=== PATIENT | female | born 1930 | race Caucasian/White ===

== ENCOUNTER → 2017-07-14 | Outpatient (CLI) | payer MEDICARE, BC ==
[~2017-07-14] MED LIST: ACETAMINOPHEN325 M1 PO; ASPIR 8181 M1 PO; AZELASTINE137 MCG/0. NS; CALTRATE-600 W1 EACH PO; CELEXA20 MG PO; COLACE100 MG PO; COSOPT OCUMETER10 M1 OP; CRANBERRY400 MG PO; CRESTOR; CRESTOR10 MG PO; ECOTRIN325 MG PO; FISH OIL 1,001000 M2 PO; HYDROCODON-ACE1 EAC7 PO; HYDROCODONE-AP1 EAC6 PO; MAGNESIUM OXID400 MG PO; MIACALCIN; MOBIC15 MG PO; MUCAPHED TABLE1 EACH PO; MULTI VITAMIN1 EACH PO; NASONEX17 GM INH; NIASPAN 500 MG500 M1 PO; NIASPAN PO; PROLIA60 MG/1 ML SUBQ; RECLAST 55 MG/100 M IV; ROBAXIN 750 MG750 MG PO; VITAMIN C + RO500 MG PO; VITAMIN D32000 UNIT PO; VITAMIN D400 UNI1 PO; ZANAFLEX4 MG PO
== END ==
LOC: M.MRI 15:46
DX: M54.16 Radiculopathy, lumbar region (principal)

== ENCOUNTER → 2017-07-22 | Outpatient (CLI) | payer MEDICARE, BC ==
--- NOTE | 2017-07-27 06:53 | PAINCON ---
[facility] [address] [place] [address] PAIN MANAGEMENT CONSULTATION Name: MARSHALL MCCLAIN [facility] [id number] Admission: 07/22/17 Attend Phys: Enoch Michaels Discharge: Date of : 32 Report #: [id number] THIS REPORT FOR: //name// CC: Myo Espinal DATE OF SERVICE: 07/22/2017 PAIN CLINIC NOTE HISTORY OF PRESENT ILLNESS: The patient is a pleasant 87-year-old female, prior seen in the pain clinic back in February 2016. Treated for lumbar radiculopathy at that time, somewhat lost to follow up. She returns to pain clinic today. The patient notes that prior epidural injections had afforded good relief of lumbar radicular pain. She notes pain has gradually begun to recur. Rates her pain as 5-6 on a VAS. She notes that developing some weakness and pain in the right leg. She did fall about a month ago, though states that this is unrelated to the pain and her pain started prior to this. Her pain actually started earlier this year. She started taking a nonsteroidal anti-inflammatory agent, developed some melanotic stools, actually admitted to the hospital with anemia. The GI bleed has resolved, though she still has ongoing pain, low back and leg. She does use some topical Voltaren gel, Tylenol for pain and Lyrica 25 mg b.i.d. PHYSICAL EXAMINATION: Notes a pleasant 87-year-old female, BMI is 22.2 kilograms per meter squared, blood pressure 153/73, pulse 89, respirations are 18. She is alert and oriented to person, place, and time, judged to be a reasonable historian. Rises from the chair using armrest, has a modestly antalgic gait. Tender across the low back, right greater than left SI mediated pain. Lower extremity strength again is symmetric, but diminished about 3/5. Straight leg raise is negative on the left, positive on the right. Patellar reflex is diminished on the right compared to the left. Achilles reflexes are generally symmetric. The patient does have a new MRI from 07/14/2017. It reveals the prior hemilaminectomy at L3-L4 and L4-L5; however, does show a broad-based right paracentral disk protrusion and a small disk extrusion causing right lateral recess narrowing. ASSESSMENT: Symptomatic lumbar radiculopathy, status post decompressive laminectomy with ongoing recurrent lumbar radicular pain. RECOMMENDATIONS: 1. Right transforaminal epidural injection at L4-L5 today. 2. Follow up in 3 weeks for reevaluation. Consideration for repeat epidural injection right of midline L5-S1 versus right SI joint injection for a component of SI [place] [address] PAIN MANAGEMENT CONSULTATION Name: MARSHALL MCCLAIN [facility] [id number] Admission: 07/22/17 Attend Phys: Enoch Michaels Discharge: Date of : 32 Report #: [id number] 3. We will have the patient is eschew a nonsteroidal anti-inflammatory agents due to the prior GI bleed concerns. Thank you for allowing me to participate in this patient's care. I will keep you abreast of her progress. PROCEDURE NOTE: Right L4-L5 transforaminal epidural injection under fluoroscopy. PROCEDURE NOTE: After both written and informed consent was obtained including risk of spinal cord damage, infection, increased pain and paralysis, the patient agreed to proceed. The patient was taken to the fluoroscopy suite, placed in a prone position with appropriate abdominal bolstering. After sterile prep with ChloraPrep and sterile drape, a skin wheal with 1% Xylocaine was raised. A 22 gauge 4-1/2 inch epidural Tuohy needle was inserted. From an oblique approach into the posterior-superior aspect of the right L4-L5 neural foramen with continuous pressure on the glass syringe plunger for loss of resistance. Glass syringe was filled with 2 cc of 0.1 Xylocaine. The glass loss of resistance syringe was removed. A low volume extension tubing was connected, negative aspiration was accomplished for cerebrospinal fluid or blood. 1 mL of Omnipaque was injected which showed spread both within the epidural space and laterally along the nerve root. This was followed with 80 mg of triamcinolone plus 1 mL of 1.5% preservative-free Xylocaine. Needle was partially withdrawn, 0.5 mL of Xylocaine was injected to clear the needle and the needle was removed. The area was cleansed, band-aid was applied. The patient was allowed to ambulate to the recovery room, discharged in good and stable condition. <ELECTRONICALLY SIGNED> By: Roderick Espinal DO 07/27/17 0653 [id number] Espinal DO /nt
== END | disposition home or self-care (01) ==
LOC: M.PC 06-10 09:00
DX: M54.16 Radiculopathy, lumbar region (principal); G89.29 Other chronic pain; Z98.890 Other specified postprocedural states; Z87.19 Personal history of other diseases of the digestive system; Z88.0 Allergy status to penicillin; Z88.8 Allergy status to other drugs, medicaments and biological substances; Z79.82 Long term (current) use of aspirin; Z79.891 Long term (current) use of opiate analgesic

== ENCOUNTER → 2017-08-05 | Outpatient (CLI) | payer MEDICARE, BC ==
--- NOTE | 2017-08-06 07:50 | PAINCON ---
[facility] [address] [place] [address] PAIN MANAGEMENT CONSULTATION Name: MARSHALL MCCLAIN [id number] Admission: 08/05/17 Attend Phys: Enoch Michaels Discharge: Date of : 32 Report #: [id number] THIS REPORT FOR: //name// CC: Nithin Espinal The patient is a pleasant 87-year-old female, prior seen in the pain clinic for symptomatic lumbar radiculopathy. She was given a right L4-L5 transforaminal epidural injection on 07/22/2017 with dramatic improvement of baseline pain. She notes she still has overall 50% improvement, but has pain in the right leg, exacerbated with standing and walking. PHYSICAL EXAMINATION: Shows positive straight leg raise on the right with slight decreased right hip flexion strength. An 87-year-old female, BMI is 22.2 kilograms per meter squared. Vital signs are stable as noted in the EMR. ASSESSMENT: Symptomatic lumbar radiculopathy, status post decompressive laminectomy. RECOMMENDATIONS: 1. Continue current medications unchanged including Voltaren gel topically, Tylenol during the day and Lyrica 25 mg b.i.d. 2. Right L4-L5 transforaminal epidural injection today. 3. Follow up in 3 weeks for reevaluation. Consideration for repeat injection if indicated clinically. Otherwise, follow up simply as needed. PROCEDURE: Transforaminal epidural injection under fluoroscopy. PROCEDURE NOTE: After both written and informed consent was obtained including risk of spinal cord damage, infection, increased pain and paralysis, the patient agreed to proceed. The patient was taken to the fluoroscopy suite, placed in a prone position with appropriate abdominal bolstering. After sterile prep with ChloraPrep and sterile drape, a skin wheal with 1% Xylocaine was raised. A 22 gauge 4-1/2 inch epidural Tuohy needle was inserted. From an oblique approach into the posterior-superior aspect of the right L4-L5 neural foramen with continuous pressure on the glass syringe plunger for loss of resistance. Glass syringe was filled with 2 cc of 0.1 Xylocaine. The glass loss of resistance syringe was removed. A low volume extension tubing was connected, negative aspiration was accomplished for cerebrospinal fluid or blood. 1 mL of Omnipaque was injected which showed spread both within the epidural space and laterally along the nerve root. This was followed with 80 mg of triamcinolone plus 1 mL of 1.5% preservative-free Xylocaine. Needle was partially withdrawn, 0.5 mL of Xylocaine was injected to clear the needle and [place] [address] PAIN MANAGEMENT CONSULTATION Name: MARSHALL MCCLAIN Room: [facility] Perez#: [id number] Admission: 08/05/17 Attend Phys: Enoch Michaels Discharge: Date of : 32 Report #: [id number] was cleansed, band-aid was applied. The patient was allowed to ambulate to the recovery room, discharged in good and stable condition. <ELECTRONICALLY SIGNED> By: Roderick Espinal DO 08/06/17 0750 [id number] Espinal DO /nt
== END | disposition home or self-care (01) ==
LOC: M.PC 03:59
DX: M54.16 Radiculopathy, lumbar region (principal); G89.29 Other chronic pain; Z98.890 Other specified postprocedural states; Z88.0 Allergy status to penicillin; Z88.8 Allergy status to other drugs, medicaments and biological substances; Z79.82 Long term (current) use of aspirin; Z79.899 Other long term (current) drug therapy; Z79.891 Long term (current) use of opiate analgesic

== ENCOUNTER → 2017-08-26 | Outpatient (CLI) | payer MEDICARE, BC ==
--- NOTE | 2017-08-27 06:59 | PAINCON ---
[address] [address] PAIN MANAGEMENT CONSULTATION Name: MARSHALL MCCLAIN Room: [facility]#: [id number] Admission: 08/26/17 Attend Phys: Enoch Michaels Discharge: Date of : 32 Report #: [id number] THIS REPORT FOR: //name// CC: Nithin Espinal The patient is a very pleasant 87-year-old female, being treated for lumbar radiculopathy secondary to spinal stenosis. She has done well with occasional right L4-L5 transforaminal epidural injections. Last injection afforded greater than 60% relief, pain has begun to recur. She does have a small nodule in the right lateral distal lower extremity. It appears to be subcutaneous lipoma. She has a negative Homans. She also has decreased right dorsiflexion and lower extremity extension strength compared to the left. Positive straight leg raise about 30 degrees on the right. Otherwise, the patient notes subjective pain score is a 6-7 on a VAS. PHYSICAL EXAMINATION: Shows a pleasant 87-year-old female, BMI is 20.8 kg/m2. Blood pressure 147/64, pulse 73, respirations are 18, room air oxygen saturation 98%. Rises from chair using armrest, modestly antalgic gait, diffuse tenderness across the low back. No discrete trigger points are noted. The patient takes Tylenol for pain. She has been using Voltaren gel topically for the right lower extremity nodule, though it did not afford much relief. Suggest she follow up with her primary care physician if the nodule continues for consideration for an ultrasound. Presently, it appears fairly benign. We reviewed her MRI from 07/14/2017. Notes hemilaminectomies at L3-L4 and L4-L5, broad-based disk bulge, right paracentric at right L4-L5, causing some neural foraminal narrowing at this level. ASSESSMENT: Symptomatic lumbar radiculopathy, status post decompressive laminectomy procedure, right L4-L5 transforaminal epidural injection under fluoroscopy today. This will be #3 in series, first injection was 07/22/2017, second was 08/05/2017. The patient understands she will need to wait until sometime after mid January before we can consider repeating these injections. PROCEDURE: Transforaminal lumbar epidural injection under fluoroscopy. PROCEDURE NOTE: After both written and informed consent was obtained including risk of spinal cord damage, infection, increased pain and paralysis, the patient agreed to proceed. The patient was taken to the fluoroscopy suite, placed in a prone position with appropriate abdominal bolstering. After sterile prep with ChloraPrep and sterile drape, a skin wheal with 1% Xylocaine was raised. A 22 gauge 4-1/2 inch epidural Tuohy needle was inserted. From an oblique approach into the posterior-superior aspect of the right L4-L5 neural foramen with continuous pressure on the glass syringe plunger [place] [address] PAIN MANAGEMENT CONSULTATION Name: MARSHALL MCCLAIN Room: [facility] Perez#: [id number] Admission: 08/26/17 Attend Phys: Enoch Michaels Discharge: Date of : 32 Report #: [id number] syringe was filled with 2 cc of 0.1 Xylocaine. The glass loss of resistance syringe was removed. A low volume extension tubing was connected, negative aspiration was accomplished for cerebrospinal fluid or blood. 1 mL of Omnipaque was injected which showed spread both within the epidural space and laterally along the nerve root. This was followed with 80 mg of triamcinolone plus 1 mL of 1.5% preservative-free Xylocaine. Needle was partially withdrawn, 0.5 mL of Xylocaine was injected to clear the needle and the needle was removed. The area was cleansed, band-aid was applied. The patient was allowed to ambulate to the recovery room, discharged in good and stable condition. <ELECTRONICALLY SIGNED> By: Roderick Espinal DO 08/27/17 0659 [id number] [id number] Espinal DO /penny
== END | disposition home or self-care (01) ==
LOC: M.PC 00:37
DX: M54.16 Radiculopathy, lumbar region (principal); G89.29 Other chronic pain; Z98.890 Other specified postprocedural states

== ENCOUNTER → 2017-11-12 | Outpatient (CLI) | payer MEDICARE, BC ==
--- NOTE | 2017-11-20 17:38 | PAINCON ---
[address] [address] PAIN MANAGEMENT CONSULTATION Name: MARSHALL MCCLAIN [facility] [id number] Admission: 11/12/17 Attend Phys: Caden Colon MD Discharge: Date of : 32 Report #: [id number] THIS REPORT FOR: //name// CC: Caden Blas DATE OF SERVICE: 11/12/2017 FOLLOWUP COMPLAINT: Lumbar pain in the right leg for years. HISTORY OF PRESENT ILLNESS: The patient is an 87-year-old female who has been seen in the pain clinic and followed by Dr. Roderick Espinal. He has seen her for a number of years. She has problems with her low back. She suffers from lumbar radicular pain secondary to spinal stenosis. She has done well in the past with transforaminal epidural steroid injections on the right. She gleaned greater than 60% improvement after the last injection. She does have what appears to be a small subcutaneous lipoma on her right lateral distal extremity. She returns today for renewal of her medications. She is in a wheelchair. Uses a walker as well as a cane. Has pain that is most problematic down her left and her right leg. It involves her right knee to her distal foot. She only has pain when she is ambulating. Injections into this area helps about 80%-90%. Rates her pain as a 0/10 when she is sitting and 10/10 when she is standing. The patient has had 3 injections in a six-month period of time. At this juncture, she would like to inquire about options. ALLERGIES: CIPROFLOXACIN AND PENICILLIN. MEDICATIONS: Tylenol 325 mg, ascorbic acid, vitamin C with sola hips 500 mg, aspirin 81 mg, azelastine 137 mcg spray to each nostril b.i.d., calcium carbonate, vitamin D3 2000 units, Celexa 20 mg, cranberry 400 mg, fish oil 1000 mg, Mucaphed tablets 600 mg b.i.d., magnesium 400 mg, Meloxicam 15 mg, and multivitamin. PAST MEDICAL HISTORY: Joint disease/arthritis and hypercholesterolemia. PAST SURGICAL HISTORY: Cataract removal. 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 REVIEW OF SYSTEMS: Decreased appetite, fatigue, cataracts, glaucoma, ringing in the ears, loss of appetite, frequent urination, joint pain, cramps, and back pain. LABORATORY DATA: MRI of the lumbar spine dated 07/14/2017 reveals: 1. L1-L2 persistent disk space narrowing with Modic type 2 and type 3 changes involving the endplates. There is posterior disk bulging [place] [address] PAIN MANAGEMENT CONSULTATION Name: MARSHALL MCCLAIN Room: [facility]#: [id number] Admission: 11/12/17 Attend Phys: Caden Colon MD Discharge: Date of : 32 Report #: [id number] ventral thecal sac and narrowing of the central canal to 9 mm. There is moderate bilateral neural foraminal narrowing. 2. L2-L3, mild circumferential disk bulging. This is great along the right foraminal surface. There is [id number] bilateral symmetric neural foraminal narrowing. There is bilateral facet hypertrophy with ligamentum flavum thickening. 3. L3-L4 remote hemilaminectomy on the left. There is disk space narrowing and disk desiccation. There is persistent or recurrent mass effect on the left neural foramen. After administration of contrast, there is a heterogeneous contrast and has enhancement in this region. The appearance is most concerning for residual or recurrent left foraminal disk protrusion. There is a left-sided neural foraminal stenosis with effacement of the exiting L3 nerve root. Mild right foraminal disk bulging is present with unchanged mild right-sided neural foraminal stenosis. 4. L4-L5 disk desiccation. There is disk space narrowing present. There is a left-sided laminectomy. The central canal was narrowed to approximately 6.5 mm. There is a central to right paracentral eccentric disk protrusion. After administration of contrast dyes there is peripheral contrast enhancement. This comes in close contact with the right L5 nerve root. The AP diameter of the central canal is narrowed to 6.5 mm. There is marked right-sided ligamentum flavum thickening measuring 11 mm. There is a trace amount of fluid in both facet joints, left greater than right. 5. L5-S1, chronic disk space narrowing with disk desiccation. There is posterior disk bulging and mild effacement of the ventral thecal sac, but no central canal or significant neural foraminal stenosis. The appearance is similar to the prior study. PAIN CLINIC ASSESSMENT: 1. History of osteoarthritis. The patient has arthritic changes in the lower portion of her back as evidenced by her last MRI in 07/2007. 2. Height 5 feet 3 inches, weight 135 pounds, BMI is 20. 3. Vital signs: Blood pressure 140/93, heart rate 78, respiratory rate 16, room air saturation 100%, and temperature 97.8. 4. Pain intensity 0/10 while sitting and 10/10 while standing. 5. Fall risk. The patient has not fallen in the last 3 months. 6. Blood thinner. The patient is not on a blood thinning medication. 8. Hypertension. The patient is not being treated for hypertension. 9. Opioid therapy greater than 6 weeks. The patient is provided with hydrocodone to help curtail her pain. 10. Functional assessment tool. 11. Recreational drug use. The patient denies use of recreational drugs. 12. Tobacco: The patient denies use of tobacco. 13. Alcohol: The patient denies frequent use of alcoholic beverages. PHYSICAL EXAMINATION: GENERAL: The patient is a well-developed, well-nour[place] [address] PAIN MANAGEMENT CONSULTATION Name: MARSHALL MCCLAIN Room: [facility]#: [id number] Admission: 11/12/17 Attend Phys: Caden Colon MD Discharge: Date of : 32 Report #: [id number] her stated age. She is in a wheelchair. Her affect is somewhat flat. She is alert and oriented x 3. Her is present. HEENT: Normocephalic, atraumatic. Extraocular eye muscles intact. Sclerae nonicteric. Mucous membranes are moist. NECK: Without significant JVD or adenopathy. HEART: Regular rate. ABDOMEN: Nontender. MUSCULOSKELETAL: The patient has pain and discomfort with pain radiating down her right leg. She has numbness and pain below the right knee area in the L5-S1 area near the posterior portion of her calf. Notes that the pain is worse when she stands on it. Has no pain or discomfort when she is sitting. IMPRESSION: 1. Lumbar radiculopathy, which has improved with transforaminal epidural steroid injections, but continues to be problematic. 2. Hypercholesterolemia. RECOMMENDATIONS: We discussed treatment options with the patient and her . Risks and benefits of an epidural steroid injection were discussed. The patient has recently had 3 epidural steroid injections and at this point would probably not qualify for another. We explained and reviewed her MRI with her. She could possibly follow up with a neurosurgeon. The patient states that she has seen Dr. Richards in the past. At this juncture, she declines a followup with him. We have discussed the treatment options, which include injections. She has had the number of injections that she can at this juncture. Use of pain medications, we will slowly provide pain medications. Hopefully, did improve her pain comfort without causing problems. The other option and last final option would be that of surgery. We have asked that if she feels she might want surgery, consider chatting with a neurosurgeon, if need arises to have surgery. She and her will give some consideration. A script for hydrocodone 5/325 one p.o. q 6-8 hours has been written. Possibility of Neurontin and gabapentin were discussed. I think the patient had taken that in the past and noticed a significant swelling in her lower extremities. It was helpful, but she is unable to take at this juncture. We would like to thank you for letting us participate in her care. We hope she continues to improve. <ELECTRONICALLY SIGNED> By: Caden Colon MD 11/20/17 1738 [id number]. Alf Colon MD /penny
== END ==
LOC: M.PC 04:55
DX: M54.16 Radiculopathy, lumbar region (principal); E78.00 Pure hypercholesterolemia, unspecified

== ENCOUNTER → 2017-12-10 | Outpatient (CLI) | payer MEDICARE, BC ==
--- NOTE | 2017-12-28 10:00 | PAINCON ---
[facility] [address] [place] [address] PAIN MANAGEMENT CONSULTATION Name: MARSHALL MCCLAIN [facility] [id number] Admission: 12/10/17 Attend Phys: Caden Colon MD Discharge: Date of : 32 Report #: [id number] THIS REPORT FOR: //name// CC: Caden Blas DATE OF SERVICE: 12/10/2017 FOLLOW-UP COMPLAINT: "Here for medication renewal and information about spinal cord stimulator." FOLLOW-UP HISTORY: The patient is an 87-year-old female who has been followed in the Pain Clinic. She has been followed for a number of years. She continues to have pain and discomfort in her low back area. She finds that opioid medications are helpful. She states that she does not want to get hooked on opioid medications. She takes hydrocodone 5 mg b.i.d. She has the option of taking it t.i.d. The thought of getting hooked on this medication has been one of the prevailing reasons why she takes less than 3 tablets daily. She has undergone transforaminal epidural steroid injections. She gleans greater than 60% improvement after the last injection that she had. She is in a wheelchair. She uses a walker and cane. She notes that her pain is most problematic when she is standing for a prolonged period of time. When she is sitting, she is not having as much discomfort. She has had some pain that radiated down into her foot. This is only problematic when she is ambulating. She rates her pain as zero when sitting and 10/10 when she is standing. The patient had talked with Dr. Roderick Espinal about the possibility of a spinal cord stimulator. The patient would like to inquire again in regards to the recommendations and likelihood of improvement using a spinal cord stimulator in her situation. ALLERGIES: CIPROFLOXACIN, PENICILLIN. MEDICATIONS: Tylenol 325 mg, ascorbic acid, vitamin C with sola hips 500 mg, aspirin 81 mg, azelastine 137 mcg spray to each nostril b.i.d., calcium carbonate, vitamin D3 2000 units, Celexa 20 mg, cranberry 400 mg, fish oil 1000 mg, MucaphEd tablet 600 mg b.i.d., magnesium 400 mg, meloxicam 15 mg, multivitamins. PAIN CLINIC ASSESSMENT/PQRS: 1. History of osteoarthritis: The patient has arthritic changes in her lower back. This is evidenced by findings on her MRI in 2007. 2. Rheumatoid arthritis: The patient states she is not being treated by a city carrier. 3. Height 5 feet 3 inches, weight 140 pounds, BMI 24.9. 4. Vital signs: Blood pressure 142/72, heart rate 77, respiratory rate 16, [facility] [address] [place] [address] PAIN MANAGEMENT CONSULTATION Name: MARSHALL MCCLAIN Room: [facility]#: [id number] Admission: 12/10/17 Attend Phys: Caden Colon MD Discharge: Date of : 32 Report #: [id number] room air saturation 96%, temperature 98.1. 5. Pain intensity: 4-5/10. 6. Fall history: The patient has not fallen in the last 3 months. 7. Blood thinner: The patient is not on a blood thinning medication. 8. Hypertension: The patient is not being treated for hypertension. 9. Opioid therapy greater than 6 weeks: The patient receives her medications from one source, the Pain Clinic. 10. Functional assessment tool. 11. Recreational drug use: The patient denies use of recreational drugs. 12. Tobacco: The patient denies use of tobacco. 13. Alcohol: The patient denies use of alcoholic beverages. PHYSICAL EXAMINATION: GENERAL: The patient is a well-developed, well-nourished white female. She appears her stated age. She is alert and oriented. She is in a wheelchair. Affect is appropriate. She is accompanied by her daughter and another male family member. HEENT: Normocephalic, atraumatic. Extraocular eye muscles intact. Sclerae nonicteric. Mucous membranes are moist. NECK: Without significant JVD or adenopathy. HEART: Regular rate. ABDOMEN: Nontender. Bowel sounds present. MUSCULOSKELETAL: The patient has pain that radiates down into her right leg. She has some numbness and pain below her right knee, in the L5-S1 distribution down into posterior portion of her calf. The patient notes worsening of her pain and onset when she stands. She notes a quiescent and decreasing pain while sitting. IMPRESSION: 1. Lumbar radiculopathy that improves with transforaminal epidural steroid injections but continues to be problematic. 2. Hypercholesterolemia. RECOMMENDATIONS: We have discussed the patient's condition with her and her . This was in the past. The patient has epidural steroid injections. She states that she would consider seeing another physician. She has seen Dr. Mansoor Richards in the past. She is not sure that she would like to have another surgery performed by Dr. Richards. She will follow up at the [facility] or [facility]. She will speak with Dr. Espinal. Information regarding the spinal cord stimulator will be provided. The patient has been given a script for hydrocodone renewal. She will continue with hydrocodone 5/325s [address] [place] [address] PAIN MANAGEMENT CONSULTATION Name: MARSHALL MCCLAIN Room: [facility].#: [id number] Admission: 12/10/17 Attend Phys: Caden oClon MD Discharge: Date of : 32 Report #: [id number] We would like to thank you for letting us participate in her care. We hope she continues to improve. <ELECTRONICALLY SIGNED> By: Caden Colon MD 12/28/17 [id number] Colon MD /nt
== END ==
LOC: M.PC 04:55
DX: M54.16 Radiculopathy, lumbar region (principal); E78.00 Pure hypercholesterolemia, unspecified

== ENCOUNTER → 2018-02-25 | Outpatient (CLI) | payer MEDICARE, BC ==
[~2018-02-25] MED LIST changes: +B12INJ PO; +GLUCOSAMINE HC500 MG PO; +IRON325 PO; +LYRICA PO; +PEPCID20 MG PO; +XALATAN2.5 ML OPHTHALMIC; +ZYRTEC10 M5 PO
--- NOTE | ~2018-02-25 | PAINCON ---
[address] [address] PAIN MANAGEMENT CONSULTATION Name: MARSHALL MCCLAIN [facility] [id number] Admission: 02/25/18 Attend Phys: Caden Colon MD Discharge: Date of : 32 Report #: [id number] THIS REPORT FOR: //name// CC: Caden Blas DATE OF SERVICE: 02/25/2018 CHIEF COMPLAINT: Low back pain. HISTORY: The patient is an 87-year-old female who has been seen in the pain clinic because of chronic back pain. She has been followed in the pain clinic for a number of years. She continues to have pain in low back area. She finds that opioid medications continue to be helpful. She has noticed some increased pain with some pain radiating down into her back into her legs, left greater than right. She has returned to the pain clinic with the intention of undergoing an epidural steroid injection. She would like to have her medications renewed. She has thought about it at this time does not feel that surgery is the option that she would like to consider. She has not had a spinal cord stimulator trial. She has undergone transforaminal epidural steroid injections in the past. Gleaned greater than 60% improvement after the injection. She walks with a walker and a cane. Finds that the pain is most problematic with prolonged standing. She notes pain improves when she rests. She states her pain is very minimal with sitting, rises to a 10/10 when she is standing. The patient may consider a spinal cord stimulator in the future. She has had a conversation with Dr. Roderick Espinal in that regard. ALLERGIES: CIPROFLOXACIN, PENICILLIN. MEDICATIONS: Tylenol 325, ascorbic acid, sola hips 500 mg, aspirin 81 mg, azelastine 137 mcg spray to each nostril b.i.d., calcium carbonate, vitamin D3 2000 units, Celexa 200 mg, cranberry 400 mg, fish oil 1000 mg, Mucaphed tabs 600 mg b.i.d., magnesium, Meloxicam 15 mg, multivitamins, hydrocodone 1 p.o. b.i.d. 5 mg, tizanidine 4 mg 1 p.o. t.i.d. PAIN CLINIC ASSESSMENT: 1. History of osteoarthritis. The patient has some arthritic changes in her lower back evidenced by findings on MRI in 2007. The patient states she has not been treated for rheumatoid arthritis. 2. Height 5 feet 3 inches, weight 140 pounds, BMI is 24. 3. Vital Signs: Blood pressure 154/71, heart rate 93, respiratory rate 16, room air saturation 96%, temperature 97.9. 4. Pain intensity 6/10. 5. Fall history: The patient has not fallen in the last 3 months. 6. Blood thinner. The patient is not on a blood thinning medication. 7. Hypertension. The patient has not [place] [address] PAIN MANAGEMENT CONSULTATION Name: MARSHALL MCCLAIN Room: [facility]#: [id number] Admission: 02/25/18 Attend Phys: Caden Colon MD Discharge: Date of : 32 Report #: [id number] 8. Opioids greater than 6 weeks. The patient receives her medications from one source, the Pain Clinic. 9. Functional assessment tool, low for opioid use. 10. Recreational drug use. The patient denies use of recreational drugs. 11. Tobacco: The patient denies use of tobacco. 12. Alcohol: The patient denies use of alcoholic beverages. PHYSICAL EXAMINATION: GENERAL: The patient is a well-developed, well-nourished white female. She appears her stated age. She is alert and oriented x 3. She has in a wheelchair. Affect is appropriate, has been accompanied by her daughter and another family member. HEENT: Normocephalic, atraumatic. Extraocular eye muscles intact. Sclerae nonicteric. Mucous membranes are moist. NECK: Without adenopathy or JVD. HEART: Regular rate. ABDOMEN: Nontender. Bowel sounds present. MUSCULOSKELETAL: The patient has pain that radiates down the lower portion of her back involving the right leg. She has some numbness below the right knee. She has pain in the L5-S1 distribution involving her calf. IMPRESSION: 1. Lumbar radiculopathy, improved with epidural steroid injection in the past. 2. Hypercholesterolemia. RECOMMENDATIONS: We discussed treatment options with the patient. Risks and benefits of an epidural steroid injection were explained. Possible complications of the procedure were reviewed. They include but are not limited to infection, increased muscle soreness, headache, worsening of pain, paralysis, the patient elects to proceed. PROCEDURE NOTE: The patient was taken to the procedure area. She was assisted in getting on the examination table. A pillow was placed under her abdomen to bolster improve positioning. Fluoroscopy using anterior and posterior visualization were implemented. L4-L5 area was infiltrated with 0.25% bupivacaine. A 17-gauge Tuohy with loss of resistance technique using a left midline approach was undertaken. After appropriate placement, a total of 80 mg Depo-Medrol, 40 mg triamcinolone and 2 mL of 0.25% bupivacaine was performed. The patient tolerated the procedure well. She was taken to the recovery room. Approximately 20 seconds fluoroscopy time was used. [facility] [address] [place] [address] PAIN MANAGEMENT CONSULTATION Name: MARSHALL MCCLAIN Room: [facility]#: [id number] Admission: 02/25/18 Attend Phys: Caden Colon MD Discharge: Date of : 32 Report #: [id number] We would like to thank you for letting us participate in the patient's care. We hope she continues to improve. By: [id number]. Alf Colon MD /nt
== END | disposition home or self-care (01) ==
LOC: M.PC 05:29
DX: M54.16 Radiculopathy, lumbar region (principal); I10 Essential (primary) hypertension; E78.00 Pure hypercholesterolemia, unspecified; Z98.890 Other specified postprocedural states; Z88.8 Allergy status to other drugs, medicaments and biological substances; Z88.0 Allergy status to penicillin; Z79.899 Other long term (current) drug therapy; Z79.82 Long term (current) use of aspirin; Z79.891 Long term (current) use of opiate analgesic

== ENCOUNTER → 2018-03-30 | Outpatient (CLI) | payer MEDICARE, BC ==
[~2018-03-30] MED LIST changes: +LASIX 20 MG TAB20 MG PO; +PROTONIX40 M1 PO
--- NOTE | ~2018-03-30 | PAINCON ---
[address] [address] PAIN MANAGEMENT CONSULTATION Name: MARSHALL MCCLAIN Room: [facility] Ana#: [id number] Admission: 03/30/18 Attend Phys: Caden Colon MD Discharge: Date of : 32 Report #: [id number] THIS REPORT FOR: //name// CC: Caden Blas DATE OF SERVICE: 03/30/2018 CHIEF COMPLAINT: Here for medication renewal. HISTORY: The patient is an 87-year-old female who has been seen in the pain clinic because of chronic pain. She has been followed because of this pain for a number of years. Continues to have pain in her low back. Finds that use of opioids continued to be helpful. She has pain that radiates down into her legs. The left side is more problematic than the right in the past. She has undergone epidural steroid injections. She has gleaned greater than 60% improvement after transforaminal epidural steroid injections. Continues to walk with a walker and cane. She also has pain in her right and left shoulders. This problem has been going on for years. She is undergoing therapy. She has done this at [place]. She had some problem with bleeding. She states that her bile was cauterized. She did have some weakness. She is having some limited range of motion in her arms. She was hoping for a cervical epidural steroid injection. She has noted some increased swelling in her legs. She has been started on Lasix to decrease some of the swelling. Because of the amount of blood loss that she sustained because of bleeding, she underwent transfusion of 3 units of blood. She has returned today for evaluation and treatment. ALLERGIES: CIPROFLOXACIN AND PENICILLIN. MEDICATIONS: Tramadol 325 mg, ascorbic acid, sola hips 500 mg, aspirin 81 mg, azelastine 137 mcg spray 2 spray to each nostril b.i.d., calcium carbonate, vitamin D3 2000 units, Celexa 200 mg, cranberry 400 mg, fish oil 1000 mg, Mucaphed tabs 600 mg b.i.d., magnesium, meloxicam, multivitamins, hydrocodone 1 p.o. b.i.d., tizanidine 4 mg 1 p.o. t.i.d. PAIN CLINIC ASSESSMENT: 1. History of osteoarthritis. The patient has some arthritic changes in the low back area. She has these findings evidence on her MRI since 2007. She has not been treated for rheumatoid arthritis. 2. Height 5 feet 3 inches, weight 145 pounds, BMI is 25. 3. Vital signs: Blood pressure 140/78, heart rate 91, respiratory rate 16, room air saturation 94%, and temperature 97.8. 4. Pain intensity 8/10 in her arms. 5. Fall history: The patient has not fallen in the last [address] [place] [address] PAIN MANAGEMENT CONSULTATION Name: MARSHALL MCCLAIN Room: [facility]#: [id number] Admission: 03/30/18 Attend Phys: Caden Colon MD Discharge: Date of : 32 Report #: [id number] 6. Blood thinner. The patient is not on a blood thinning medication. 7. Hypertension. The patient is not being treated for hypertension. 8. Opioid greater than 6 weeks. The patient received medication through the Pain Clinic. 9. Functional assessment tool, low for opioid use. 10. Recreational drug use. The patient denies use of recreational drugs. 11. Tobacco: The patient denies use of tobacco. 12. Alcohol: The patient denies use of alcoholic beverages. PHYSICAL EXAMINATION: GENERAL: The patient is a well-developed, well-nourished white female. Appears her stated age. She is alert and oriented x 3. She is in a wheelchair. HEENT: Normocephalic, atraumatic. Extraocular eye muscles intact. The patient complains of pain and discomfort in the right as well as the left arm. She note some weakness and discomfort in these areas down into her arms. HEART: History of murmur. NECK: Without adenopathy or JVD. ABDOMEN: Nontender. Bowel sounds present. MUSCULOSKELETAL: The patient has pain that radiates down into her arms, right greater than left. The patient also has pain and discomfort in the lumbar area with pain radiating down into the L5-S1 area of her legs on the right with numbness. ASSESSMENT: 1. Recent gastrointestinal bleed. 2. Cervical radiculopathy. 3. Lumbar radiculopathy. 4. Hypercholesterolemia. RECOMMENDATIONS: We discussed treatment options with the patient. Given that the patient has had a recent GI bleed we explained to her that use of cortisone can sometimes cause some exacerbation of this. We would recommend at least for the next 6 weeks while she heals that she not undergo an injection. Recommend the patient to stop all nonsteroidal anti-inflammatory medications including the Mobic, given that she has had a recent bleed. She will continue with her current medication of hydrocodone 5/325 one p.o. b.i.d. The patient will return in the future after she has been cleared that her GI status has stabilized. At that time, we may consider epidural steroid injection in the cervical area or the lumbar area. We would like to thank you for letting us participate in her care. We hope she continues to improve. By: [id number]. Alf Colon MD /nt
== END ==
LOC: M.PC 10:43
DX: M54.16 Radiculopathy, lumbar region (principal); M54.12 Radiculopathy, cervical region; G89.29 Other chronic pain; E78.00 Pure hypercholesterolemia, unspecified; K92.2 Gastrointestinal hemorrhage, unspecified; Z79.899 Other long term (current) drug therapy

== ENCOUNTER → 2018-05-11 | Outpatient (CLI) | payer MEDICARE, BC ==
[~2018-05-11] MED LIST changes: +ASPERCREME1 EACH TP; +COLACE 100 MG100 MG PO; +COZAAR 25 MG TA25 M1 PO; +MIRALAX17 GM PO; +TYLENOL EXTRA500 MG PO; +ZANTAC 150MG T150 M1 PO
--- NOTE | ~2018-05-11 | PAINCON ---
[address] [address] PAIN MANAGEMENT CONSULTATION Name: MARSHALL MCCLAIN [facility] [id number] Admission: 05/11/18 Attend Phys: Caden Colon MD Discharge: Date of : 32 Report #: [id number] THIS REPORT FOR: //name// CC: Caden Blas DATE OF SERVICE: 05/11/2018 CHIEF COMPLAINT: Here for a lumbar epidural steroid injection. HISTORY: The patient is an 87-year-old female who has been seen in the pain clinic because of chronic pain and lumbar radicular discomfort. She is experiencing pain in the lower portion of her back, in the area of the left leg, and also has some shoulder pain. She has had pain and discomfort for years. She has had low back surgery. She is having pain that radiates down into both legs, left leg being more problematic. It terminates on the top of her feet. She denies any new discomfort. She notes that the last injection helped quite a bit. She also has bilateral shoulder pain with decreasing range of motion. Rates her shoulder pain as 8/10 and the pain in her legs as a 6/10 while standing. Finds that hydrocodone and Tylenol have been helpful. She has returned today with the hopes of undergoing another epidural steroid injection. She gleaned greater than 60% improvement after the last injection. She continues to walk with use of her cane and walker. ALLERGIES: CIPROFLOXACIN, PENICILLIN. MEDICATIONS: Tramadol 325 mg, ascorbic acid, Hailee Hips 500 mg, aspirin 81 mg, azelastine 137 mcg spray each nostril b.i.d., calcium carbonate, vitamin D 2000 units, Celexa 200 mg, cranberry 400 mg, fish oil 1000 mg, MucaphEd tablet 600 mg b.i.d., magnesium, multivitamins, hydrocodone 1 p.o. b.i.d., and tizanidine 4 mg 1 p.o. t.i.d. The patient has used Meloxicam. PAIN CLINIC ASSESSMENT AND PQRS: 1. History of osteoarthritis. The patient has some arthritic changes in her low back as well as arthritic changes in her shoulders. She is not being treated for rheumatoid arthritis. 2. Height 5 feet 3 inches, weight 147 pounds, BMI is 26. 3. Vital signs: Blood pressure 148/72, heart rate 86, respiratory rate 20, room air saturation 95%. Temperature 98.2. Pain intensity 8/10 in the shoulders and 6/10 with standing. 4. Fall history: The patient has not fallen in the last 3 months. 5. Blood thinner. The patient is not on a blood thinning medication. 6. Hypertension. The patient is not being treated for hypertension. 7. Opioids greater than 6 weeks. The patient receives medication through the pain clinic. 8. Functional assessment tool, [place] [address] PAIN MANAGEMENT CONSULTATION Name: MARSHALL MCCLAIN Room: [facility]#: [id number] Admission: 05/11/18 Attend Phys: Caden Colon MD Discharge: Date of : 32 Report #: [id number] 9. Recreational drug use. The patient denies use of recreational drugs. 10. Tobacco: The patient denies use of tobacco. 11. Alcohol: The patient denies use of alcoholic beverages. PHYSICAL EXAMINATION: GENERAL: The patient is a well-developed, well-nourished white female. Appears her stated age. She is alert and oriented x 3. She is in a wheelchair. She is accompanied by her . HEENT: Normocephalic, atraumatic. Extraocular eye muscles intact. Sclerae nonicteric. Mucous membranes moist. The patient has some discomfort in the right as well as in the left arm. Notes weakness in these areas. Muscle strength is judged to be 4/5 for the major muscle groups. HEART: With history of murmur. NECK: Without adenopathy or JVD. ABDOMEN: Nontender. Bowel sounds present. MUSCULOSKELETAL: Lower extremity judged to be 4/5 for the major muscle groups in the lower extremity. The patient has pain and discomfort in the L5-S1 dermatomal distribution down into the left leg. ASSESSMENT: 1. History of gastrointestinal bleed. 2. Cervical radiculopathy. 3. Lumbar radiculopathy, L5-S1. 4. Hypercholesterolemia. RECOMMENDATIONS: We discussed treatment options with the patient. Risks and benefits of epidural steroid injection were again reviewed. The patient gleaned greater than 60% improvement after the last injection. She has returned to the pain clinic with a desire of undergoing another L4-L5 epidural steroid injection. Risks and benefits were again reviewed with the patient and her . The patient elects to proceed. PROCEDURE NOTE: The patient was taken to the procedure area. She was assisted in getting on the examination table. A pillow was placed under her abdomen to bolster and improve positioning. Anterior and posterior viewing with the fluoroscopy were undertaken. The patient's back was sterilely prepped in the L4-L5 dermatomal distribution. The left L4-L5 area using a left paramedian approach was undertaken. This area was infiltrated with 0.25% bupivacaine. A 17-gauge Tuohy with loss of resistance technique at the L4-L5 interspace was then used. There was no CSF, heme, or paresthesia. Total of 80 mg Depo-Medrol, 40 mg triamcinolone, and 2 mL of 0.25% bupivacaine was injected. The patient tolerated the procedure well. A total of 17 seconds fluoroscopy time was used. The patient remained in the pain clinic for an appropriate amount of time. She will follow up in the future as needed. A script for medications of hydrocodone 5/325 one p.o. q.6-8 hours, total of 60 tablets have been dispensed. The patient will call us if [place] [address] PAIN MANAGEMENT CONSULTATION Name: MARSHALL MCCLAIN Room: [facility]#: [id number] Admission: 05/11/18 Attend Phys: Caden Colon MD Discharge: Date of : 32 Report #: [id number] We would like to thank you for letting us participate in her care. We hope she continues to improve. By: [id number]. Alf Colon MD /nt
== END | disposition home or self-care (01) ==
LOC: M.PC 11:00
DX: M54.16 Radiculopathy, lumbar region (principal); G89.29 Other chronic pain; M54.12 Radiculopathy, cervical region; E78.00 Pure hypercholesterolemia, unspecified; Z87.19 Personal history of other diseases of the digestive system; Z88.0 Allergy status to penicillin; Z88.8 Allergy status to other drugs, medicaments and biological substances; Z79.899 Other long term (current) drug therapy; Z79.82 Long term (current) use of aspirin; Z98.890 Other specified postprocedural states

== ENCOUNTER → 2018-06-08 | Outpatient (CLI) | payer MEDICARE, BC ==
[~2018-06-08] MED LIST changes: +MEDROLDOSEPACK PO
--- NOTE | ~2018-06-08 | PAINCON ---
[address] [address] PAIN MANAGEMENT CONSULTATION Name: MARSHALL MCCLAIN [id number] Admission: 06/08/18 Attend Phys: Caden Colon MD Discharge: Date of : 32 Report #: [id number] THIS REPORT FOR: //name// CC: Caden Blas DO DATE OF SERVICE: 06/08/2018 CHIEF COMPLAINT: Left leg and right leg pain, shoulder pain. HISTORY: The patient is an 88-year-old female who has been seen in the Pain Clinic because of lumbar radiculopathy as well as cervical radicular pain. She returns today indicating that she continues to have pain, which is quite problematic. It involves her left leg, right leg and shoulders. The patient has undergone injections in the past. She plans to see an orthopedic surgeon in the near future. She has just finished physical therapy. Rates pain in the legs as a 9 and pain in her shoulders as a 9 as well. Feels that the hydrocodone is somewhat beneficial. She and her feel that a Medrol Dosepak might be helpful with the shoulders as well as with the lower extremity. She had a relative of hers who had a similar complaint. She was given a oral steroid regimen. She gleaned benefits from these. They both feel that an oral Medrol Dosepak might be beneficial for both the upper extremity shoulder area as well as the lower extremity leg area. We will proceed with this conservative approach. ALLERGIES: CIPROFLOXACIN, PENICILLIN. CURRENT MEDICATIONS: Tramadol 325 mg, ascorbic acid, sola hips 500 mg, aspirin 81 mg, azelastine 137 mcg spray each nostril b.i.d., calcium carbonate, vitamin D 2000 units, Celexa 200 mg, cranberry 400 mg, fish oil 1000 mg, Mucaphed tablets 600 mg b.i.d., magnesium, multivitamins, hydrocodone 5/325 b.i.d., tizanidine 4 mg 1 p.o. t.i.d. PAIN CLINIC ASSESSMENT/PQRS: 1. History of osteoarthritis. The patient has arthritic changes in her back as well as arthritic changes in her shoulders. She is not being treated for rheumatoid arthritis. 2. Height 5 feet 3 inches, weight 143 pounds, BMI is 25. 3. Blood pressure 144/73, heart rate 84, respiratory rate 16, room air saturation 96%, temperature 97.6. 4. Pain intensity, 9/10 in the legs, 9/10 in shoulders fall. 5. Fall history. The patient has not fallen in the last 3 months. 6. Blood thinner. The patient is not on a blood thinning medication. 7. Hypertension. The patient is not being treated for hypertension. 8. Opioids greater than 6 weeks. The [place] [address] PAIN MANAGEMENT CONSULTATION Name: MARSHALL MCCLAIN Room: [facility]#: [id number] Admission: 06/08/18 Attend Phys: Caden Colon MD Discharge: Date of : 32 Report #: [id number] the [facility] once source. 9. Recreational drug use. The patient denies use of recreational drugs. 10. Tobacco: The patient denies use of tobacco. 11. Alcohol: The patient denies use of alcoholic beverages. PHYSICAL EXAMINATION: GENERAL: The patient is accompanied by her . The patient is alert and oriented x 3. Affect is appropriate. Speech is fluent. HEENT: Normocephalic, atraumatic. Extraocular eye muscles intact. Sclerae nonicteric. The patient is in a wheelchair. The patient has complaints of pain in her shoulders as well as pain in the right and left arm. Has some discomfort in the lower portion of her back with pain that is radiating down into her left leg. HEART: Regular rate with history of murmur. NECK: Without adenopathy or JVD. Bowel sounds present. MUSCULOSKELETAL: A 4-/5 for the major muscle groups in the upper extremity. The patient has pain and discomfort in the L5-S1 dermatomal distribution down her left leg. IMPRESSION: 1. History of gastrointestinal bleed. 2. Cervical radiculopathy. 3. Shoulder pain. 4. Lumbar radiculopathy, L5-S1. 5. Hypercholesterolemia. RECOMMENDATIONS: We discussed treatment options with the patient. At this juncture, the patient and her feel that a conservative approach might be reasonable. At this juncture, we will provide him with a Medrol Dosepak. She will take this in the interim. Hopefully, she will notice an improvement. If her pain persists, the option of an epidural steroid injection still remains. The patient is considering seeing a surgeon for evaluation in the future. A script for prednisone and Medrol Dosepak has been written. We would like to thank you for letting us participate in her care. By: [id number]. Alf Colon MD /penny
== END ==
LOC: M.PC 04:47
DX: M54.17 Radiculopathy, lumbosacral region (principal); M54.12 Radiculopathy, cervical region; M25.511 Pain in right shoulder; M25.512 Pain in left shoulder; E78.00 Pure hypercholesterolemia, unspecified; Z87.19 Personal history of other diseases of the digestive system

== ENCOUNTER → 2018-06-24 | Outpatient (CLI) | payer MEDICARE, BC ==
--- NOTE | ~2018-06-24 | PAINCON ---
[address] [address] PAIN MANAGEMENT CONSULTATION Name: MARSHALL MCCLAIN Room: [facility].#: [id number] Admission: 06/24/18 Attend Phys: Caden Colon MD Discharge: Date of : 32 Report #: [id number] THIS REPORT FOR: //name// CC: Caden Blas DATE OF SERVICE: 06/24/2018 CHIEF COMPLAINT: Left leg pain and right leg pain and also pain in shoulders. HISTORY: The patient is an 88-year-old female who has been followed in the Pain Clinic because of lumbar pain as well as cervical pain. She returns today indicating that her pain is a 2 for the legs and a 5-6 for shoulders. She has an appointment to see an orthopedic physician in the near future. She was provided a Medrol Dosepak. She has been placed on a daily dose of prednisone by her primary. She states that she is feeling much better as a result. She has had no complications from it. She is feeling that her medications are working reasonably well at this juncture. She still has pain with activity, walking, standing, climbing stairs, bending, and lifting. She would like to continue with her current medical regimen. ALLERGIES: CIPROFLOXACIN, PENICILLIN. CURRENT MEDICATIONS: Tramadol has been used, [place] 5 mg 1 p.o. p.r.n. b.i.d., ascorbic acid, Hailee Hips 500 mg, aspirin 81 mg, azelastine 137 mcg spray to each nostril b.i.d., calcium carbonate, vitamin D 2000 units, Celebrex 200 mg, cranberry 400 mg, fish oil 1000 mg, Mucaphed tablets 600 mg b.i.d., magnesium, multivitamin, hydrocodone 5/325 b.i.d., tizanidine 4 mg 1 p.o. t.i.d. PAIN CLINIC ASSESSMENT AND PQRS: 1. The patient has a history of osteoarthritic changes in her back as well as some change in her shoulders. She is not being treated for rheumatoid arthritis. 2. Height 5 feet 3 inches, weight 141 pounds, BMI is 24.9. 3. Vital signs: Blood pressure 148/68, heart rate 87, respiratory rate 16, room air saturation 94%, temperature 97.5. 4. Pain intensity: 2/10 for the legs and 5-6/10 for shoulders. 5. Fall history: The patient has not fallen in the last 3 months. 6. Blood thinner: The patient is not on a blood thinning medication. 7. Hypertension: The patient is not being treated for hypertension. 8. Opioids greater than 6 weeks: The patient receives medications through the Pain Clinic. 9. Recreational drug use: The patient denies use of recreational drugs. 10. Tobacco: The patient denies use of tobacco. 11. Alcohol: The patient [place] [address] PAIN MANAGEMENT CONSULTATION Name: MARSHALL MCCLAIN [facility] [id number] Admission: 06/24/18 Attend Phys: Caden Colon MD Discharge: Date of : 32 Report #: [id number] PHYSICAL EXAMINATION: GENERAL: The patient is a well-developed, well-nourished, white female. She appears her stated age. She is accompanied by her daughter. She is alert and oriented x 3. Affect is appropriate. Speech is fluent. HEENT: Normocephalic, atraumatic. Extraocular eye muscles intact. CARDIOVASCULAR: The patient's heart rate is regular with history of murmur. NECK: Without adenopathy or JVD. ABDOMEN: Bowel sounds present. MUSCULOSKELETAL: The patient has some pain and discomfort involving her left leg as well as some pain in her right leg. She has some pain and discomfort in her shoulders with some limited movement. Upper extremity 4-/5 for the major muscle groups in the upper extremity. The patient has pain and discomfort in lower portion of her back with 4/5 muscle strength in the lower extremity. She has some pain and discomfort in the L5-S1 dermatomal distribution involving the left leg. IMPRESSION: 1. History of gastrointestinal bleed. 2. Cervical radiculopathy. 3. Shoulder pain. 4. Lumbar radiculopathy at L5-S1. 5. Hypercholesterolemia. RECOMMENDATIONS: We discussed treatment options with the patient. We will continue with her current medical regimen. She feels that this is helpful. She feels that the use of a steroid dose, which is prescribed by her primary care physician has been helpful. She had a family member who had similar complaints and findings and they found that steroid medications were quite helpful for them. She and her family are satisfied with the results at this juncture. She will follow up in the Pain Clinic as needed. We would like to thank you for letting us participate in her care. We hope she continues to improve. By: [id number]. Alf Colon MD /penny
== END ==
LOC: M.PC 07:59
DX: M54.17 Radiculopathy, lumbosacral region (principal); M54.12 Radiculopathy, cervical region; E78.00 Pure hypercholesterolemia, unspecified; M19.011 Primary osteoarthritis, right shoulder; M19.012 Primary osteoarthritis, left shoulder; Z88.1 Allergy status to other antibiotic agents; Z88.0 Allergy status to penicillin; Z79.899 Other long term (current) drug therapy; Z79.891 Long term (current) use of opiate analgesic

== ENCOUNTER → 2019-08-25 | Outpatient (CLI) | payer MEDICARE, BC ==
[~2019-08-25] MED LIST changes: +NORCO 5-325 TA1 EAC1 PO
--- NOTE | 2019-08-31 08:41 | PAINCON ---
[facility] [address] [place] [address] PAIN MANAGEMENT CONSULTATION Name: MARSHALL MCCLAIN Room: [facility].#: [id number] Admission: 08/25/19 Attend Phys: Caden Colon MD Discharge: Date of : 32 Report #: [id number] THIS REPORT FOR: //name// cc: Nithin Blas Steve T. DO ~ THIS REPORT FOR: //name// CC: Caden Blas DO DATE OF SERVICE: 08/25/2019 CHIEF COMPLAINT: Low back pain and would like to have an injection. HISTORY: The patient is an 89-year-old female who has been followed in the pain clinic because of lumbar radiculopathy. She has noticed a return of pain and discomfort involving her low back. She has gleaned benefits from the pain injections in the past. Pain is mostly on the left side and down into her left leg. She has had pain for a number of years. She rates her pain as an 8/10 at this point. She does use hydrocodone to help with her medications. She has been receiving prednisone orally on a daily basis for the last 2 days. ALLERGIES: CIPROFLOXACIN AND PENICILLIN. CURRENT MEDICATIONS: Tramadol has been used in the past, [place] 5 mg 1 p.o. b.i.d., ascorbic acid, Hailee Hips 500 mg, aspirin 81 mg, azelastine 137 mcg b.i.d., calcium carbonate, vitamin D 2000 units, Celebrex 200 mg, cranberry 400 mg, fish oil 1000 mg, Mucaphed tablets 600 mg b.i.d., magnesium, multivitamins, and tizanidine 4 mg t.i.d. PAIN CLINIC ASSESSMENT/PQRS: 1. The patient has some osteoarthritic changes in her back. She has some changes in her shoulder. She is not being treated for rheumatoid arthritis. 2. Height 5 feet 3 inches, weight 143 pounds last checked, BMI 24.9. 3. Vital signs: Blood pressure 192/82, heart rate 76, respiratory rate 16, room air saturation 97%, temperature 98.2. 4. Pain intensity 10/23. 5. Fall history: The patient has not fallen in the last 3 months. 6. Blood thinner. The patient is not on a blood thinning medication. 7. Hypertension. The patient is not being treated for hypertension. 8. Opioids greater than 6 weeks. The patient receives medication through the pain clinic. 9. Risk assessment tool. The patient denies use of recreational drugs. 10. Tobacco: The patient denies use of tobacco. 11. Alcohol: The patient [place] [address] PAIN MANAGEMENT CONSULTATION Name: MARSHALL MCCLAIN Room: [facility]#: [id number] Admission: 08/25/19 Attend Phys: Caden Colon MD Discharge: Date of : 32 Report #: [id number] PHYSICAL EXAMINATION: GENERAL: The patient is a well-developed, well-nourished white female. Appears her stated age. She is alert and oriented x 3. Her affect is appropriate. Speech is fluent. HEENT: Normocephalic, atraumatic. Extraocular eye muscles intact. Sclerae nonicteric. HEART: The patient has a history of heart murmur. ABDOMEN: Nontender. MUSCULOSKELETAL: The patient has some pain and discomfort in her left hip and leg. Notes some difficulty with moving it with range of motion. Muscle strength judged to be 4-/5 for the major muscle groups in the lower extremity. The patient has pain and discomfort in the L4-L5 distribution. IMPRESSION: 1. History of gastrointestinal bleed in the past. 2. Lumbar radiculopathy. 3. Cervical radiculopathy. 4. Shoulder pain. 5. Lumbar radiculopathy, L5-S1 in the past. 6. Hypercholesterolemia. RECOMMENDATIONS: We discussed treatment options with the patient. At this juncture, she is having pain and discomfort in the lower portion of her back in the L4-L5 dermatomal distribution. The last injection at this level was quite beneficial. We will now proceed with another injection at this area. The patient has quite a bit of spondylosis. Fluoroscopy was used in the past. We discussed the risks and benefits with the patient possible complications of the procedure given her age and COVID-19. The patient is at increased risk of a bad outcome should she become infected. She is aware and would like to proceed. PROCEDURE NOTE: The patient was taken to the procedure area. She was then assisted in getting on the examination table. Her back was sterilely prepped with a Betadine solution. A 0.25% bupivacaine was allowed to dry at the L4-L5 space. A 17-gauge Tuohy with loss of resistance technique was then advanced into the L4-L5 space. This area had been anesthetized with 0.25% bupivacaine using a 25-gauge needle. A total of 80 mg Depo-Medrol, 40 mg triamcinolone, and 2 mL of 0.25% bupivacaine was injected. The patient tolerated the procedure well. There were no complications. A 15 seconds of fluoroscopy time was used. The patient was taken by wheelchair to her daughter. She will call us if she has any concerns. The patient will discontinue the prednisone taper, [place] [address] PAIN MANAGEMENT CONSULTATION Name: SARAHIMARSHALL Max Room: [facility]#: [id number] Admission: 08/25/19 Attend Phys: Caden Colon MD Discharge: Date of : 32 Report #: [id number] We would like to thank you for letting us participate in her care. We hope she continues to improve. <ELECTRONICALLY SIGNED> By: Caden Colon MD 08/31/19 0841 [id number]. Alf Colon MD /PMT
== END | disposition home or self-care (01) ==
LOC: M.PC 05:08
PROVIDERS: ATTEND Anesthesiology Pain Medicine
DX: M54.16 Radiculopathy, lumbar region (principal); G89.29 Other chronic pain; M54.12 Radiculopathy, cervical region; E78.00 Pure hypercholesterolemia, unspecified; Z98.890 Other specified postprocedural states; Z79.899 Other long term (current) drug therapy; Z88.0 Allergy status to penicillin; Z88.8 Allergy status to other drugs, medicaments and biological substances

== ENCOUNTER → 2020-01-26 | Outpatient (CLI) | payer MEDICARE, BC ==
--- NOTE | 2020-02-16 14:42 | PAINCON ---
[address] [address] PAIN MANAGEMENT CONSULTATION Name: MARSHALL MCCLAIN Room: [facility].#: [id number] Admission: 01/26/20 Attend Phys: Caden Colon MD Discharge: Date of : 32 Report #: [id number] THIS REPORT FOR: //name// cc: Shona Guerrero Kathryn C. DO ~ CC: Shona Blas DO DATE OF SERVICE: 01/26/2020 CHIEF COMPLAINT: Lumbar radicular pain. HISTORY: The patient is an 89-year-old female who has been seen in the pain clinic in the past because of chronic pain. She has undergone epidural steroid injections and found that this was beneficial. She has now noticed that her pain has recently recurred. She has returned today with the hopes of undergoing another injection. She rates her pain as an 8/10 at this point. It involves the left hip, left leg, both shoulders as well as her arms. She felt that she got excellent relief from the previous epidural steroid injection. She has returned today with the hopes of undergoing another injection to help quell her pain. ALLERGIES: CIPROFLOXACIN AND PENICILLIN. CURRENT MEDICATIONS: Tramadol has been used in the past, [place] 5 mg 1 p.o. b.i.d., ascorbic acid, Hailee Hips 500 mg, aspirin 81 mg, azelastine 137 mcg b.i.d., calcium carbonate, vitamin D 2000 units, Celebrex 200 mg, cranberry 400 mg, fish oil 1000 mg, magnesium, multivitamins, tizanidine 4 mg t.i.d. PAIN CLINIC ASSESSMENT AND PQRS: 1. The patient has some osteoarthritic changes in her back. She has some changes in her shoulder. She is not being treated for rheumatoid arthritis. 2. Height 5 feet 3 inches, weight last weight 143 pounds, BMI is 24.9. 3. Vital Signs: Blood pressure 149/78, pulse 94, respiratory rate 94 and irregularly irregular. 4. Respiratory rate is 20, room air saturation is 97%, temperature 97.4. 5. Pain intensity greater than 7. 6. Fall history: The patient has not fallen in the last 3 months. 7. Blood thinner. The patient is not on a blood thinning medication. 8. Hypertension. The patient is not being treated for hypertension. 9. Opioids greater than 6 weeks. The patient receives medication from the pain clinic. 10. Risk assessment tool, [place] [address] PAIN MANAGEMENT CONSULTATION Name: MARSHALL MCCLAIN Room: [facility]#: [id number] Admission: 01/26/20 Attend Phys: Caden Colon MD Discharge: Date of : 32 Report #: [id number] 11. Tobacco: The patient denies use of tobacco. 12. Alcohol. The patient denies use of alcoholic beverages at this point. PHYSICAL EXAMINATION: GENERAL: The patient is a well-developed, well-nourished white female. Appears her stated age. She is alert and oriented x 3. Her affect is appropriate for an 89-year-old. Speech is fluent. HEENT: Normocephalic, atraumatic. Extraocular eye muscles intact. The patient is wearing a mask. HEART: The patient has a history of heart murmur. ABDOMEN: Nontender. MUSCULOSKELETAL: The patient has pain and discomfort in her left hip and legs. Notes some decreased range of motion. Complains of muscle soreness with movement. Complains of significant pain and discomfort when we moved her from the wheelchair onto the bed. She is unable to lay prone, but did lay in somewhat of a position to have the procedure performed. IMPRESSION: 1. History of gastrointestinal bleed in the past. 2. Lumbar radiculopathy. 3. Cervical radiculopathy. 4. Shoulder pain. 5. Lumbar radicular pain, L5-S1 in the past. 6. Hypercholesterolemia. RECOMMENDATIONS: We discussed treatment options with the patient. Risks and benefits of an injection were discussed. They include but are not limited to infection, worsening pain, no improvement in pain, nerve damage, bleeding. The COVID-19 pandemic is problematic. We explained to the patient that steroids can decrease once immune response. Should the patient become infected, she may have a more difficult time with the infection. At this point, she elects to proceed. PROCEDURE NOTE: The patient was taken to the procedure was assisted in getting on examination table. Her back was sterilely prepped with a Betadine solution. A 0.25% bupivacaine was infiltrated at the L5-S1 area. A 17-gauge Tuohy with loss of resistance technique was used to gain access to the epidural space. There was no CSF, heme or paresthesia. Total of 80 mg Depo-Medrol, 40 mg triamcinolone and 2 mL of 0.25% bupivacaine was injected into the area. The patient remained in the pain clinic for an appropriate amount of time. She will follow up [place] [address] PAIN MANAGEMENT CONSULTATION Name: MARSHALL MCCLAIN Room: [facility]#: [id number] Admission: 01/26/20 Attend Phys: Caden Colon MD Discharge: Date of : 32 Report #: [id number] We would like to thank you for letting us participate in her care. We hope she gets some good relief from this injection as she had in the previous injection. <ELECTRONICALLY SIGNED> By: Caden Colon MD 02/16/20 1442 [id number]. Alf Colon MD /[facility]
== END | disposition home or self-care (01) ==
LOC: M.PC 11:35
PROVIDERS: ATTEND Anesthesiology Pain Medicine
DX: M54.5 Low back pain (principal); M54.16 Radiculopathy, lumbar region; M54.12 Radiculopathy, cervical region; E78.00 Pure hypercholesterolemia, unspecified; Z88.0 Allergy status to penicillin; Z88.1 Allergy status to other antibiotic agents; Z79.899 Other long term (current) drug therapy; Z98.890 Other specified postprocedural states

== ENCOUNTER → 2020-02-28 | Outpatient (CLI) | payer MEDICARE, BC ==
[~2020-02-28] MED LIST changes: -ASPIR 8181 M1 PO; +ASPIRIN325 PO; +LIPITOR10 MG PO; +RAYOS5 MG PO; +TIZANIDINE HCL2 M1 PO
== END | disposition home or self-care (01) ==
LOC: M.PC 10:06
PROVIDERS: ATTEND Anesthesiology Pain Medicine
DX: M54.16 Radiculopathy, lumbar region (principal); G89.29 Other chronic pain; M54.12 Radiculopathy, cervical region; I10 Essential (primary) hypertension; E78.00 Pure hypercholesterolemia, unspecified; H40.9 Unspecified glaucoma; K21.9 Gastro-esophageal reflux disease without esophagitis; M81.0 Age-related osteoporosis without current pathological fracture; F32.9 Major depressive disorder, single episode, unspecified; Z98.890 Other specified postprocedural states; Z79.899 Other long term (current) drug therapy; Z87.19 Personal history of other diseases of the digestive system; Z87.891 Personal history of nicotine dependence; Z90.49 Acquired absence of other specified parts of digestive tract; Z98.41 Cataract extraction status, right eye; Z98.42 Cataract extraction status, left eye

== ENCOUNTER 2020-08-21 10:32 | Inpatient (IN) | payer MEDICARE, BC ==
[~2020-08-21] VITALS: Ht 162.6 cm; Wt 70.9 kg
[~2020-08-21 10:32] MED LIST changes: +B-12500 MCG PO; -B12INJ PO; -PROTONIX40 M1 PO; +PROTONIX40 M4 PO; -VITAMIN D32000 UNIT PO; +VITAMIN D350 MC3 PO
[2020-08-21 10:47] VITALS: BP 179/70
[2020-08-21 10:48] LABS: HEMATOCRIT 32.8 % (37.0-47.0); MCH 32.1 pg (26.0-34.0); MCHC 33.5 g/dL (28.0-37.0); MCV 95.8 fL (80.0-100.0); MPV 8.3 fl. (7.2-11.1); NUCLEATED RBCS 0 /100WBC; PLATELET COUNT* 205 thou/uL (150-400); RBC 3.43 mil/uL (4.20-5.00); RDW-CV 16.6 % (10.5-14.5); WBC 12.5 thou/uL (4.0-11.0)
[2020-08-21 10:58] LABS: CALCIUM 9.4 mg/dL (8.5-10.1); CREATININE 1.6 mg/dL (0.6-1.3); POTASSIUM 3.6 mmol/L (3.5-5.1)
[2020-08-21 11:09] LABS: TOTAL BILIRUBIN 0.5 mg/dL (<0.1-1.0); TOTAL PROTEIN 7.3 g/dL (6.4-8.2)
[2020-08-21 11:20] LABS: ABSOLUTE EOSINOPHILS 0.1 thou/uL (0.0-0.7); ABSOLUTE LYMPHOCYTES 2.4 thou/uL (0.8-5.3); ABSOLUTE MONOCYTES 0.8 thou/uL (0.0-1.2); ABSOLUTE NEUTROPHILS 9.3 thou/uL (1.6-8.1); PLATELET ESTIMATE ADEQUATE
[2020-08-21 11:21] LABS: HYPOCHROMASIA Occasional
[2020-08-21 14:07] LABS: URINE BILIRUBIN NEGATIVE (Negative); URINE BLOOD NEGATIVE (Negative); URINE CLARITY CLEAR; URINE COLOR YELLOW; URINE GLUCOSE-RANDOM NEGATIVE (Negative); URINE KETONES NEGATIVE (Negative); URINE LEUKOCYTES-REFLEX 1+ (Negative); URINE NITRITE-REFLEX NEGATIVE (Negative); URINE PROTEIN NEGATIVE (Negative); URINE UROBILINOGEN 0.2 E.U./dl (0.2-1.0)
[2020-08-21 14:14] LABS: SQUAMOUS >10 Many /LPF (0-3)
[2020-08-21 14:15] LABS: URINE WBC-REFLEX 0-5 Rare /HPF (0-5)
[2020-08-21 14:16] LABS: BACTERIA-REFLEX >30 Many /HPF (None Seen); CASTS None Seen /LPF (None Seen); CRYSTALS None Seen /LPF (None Seen); MUCUS None Seen strn/LPF (None Seen); URINE RBC None Seen /HPF (0-2)
--- NOTE | 2020-08-21 15:49 | EKG ---
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: : 1930 Requested By: Alexis Adorno Order Number: [id number] MD: Tyrell Elias Measurements Intervals [place] Rate: 86 P: 53 ID: [id number] QRS: -15 QRSD: 98 T: 83 QT: 386 QTc: 462 Interpretive Statements Sinus rhythm Low voltage, precordial leads LVH with secondary repolarization abnormality Anterior Q waves, possibly due to LVH Compared to ECG 03/28/2013 16:04:24 Low QRS voltage now present Left ventricular hypertrophy now present Early repolarization now present ST (T wave) deviation no longer present Electronically Signed On 08-21-2020 15:49:32 CDT by Tyrell Elias [email or web address] <ELECTRONICALLY SIGNED> By: Tyrell Elias MD, [facility] 08/21/20 1549 1051 1051 Tyrell Elias MD, [facility] /EPI
[2020-08-21] MEDS ORDERED: ASA81BEC PO (17:09)
[2020-08-21] MEDS ORDERED: PROAIR HFA8.5 GM INH (17:11)
[2020-08-21 17:45] VITALS: BP 163/64
[2020-08-21 18:15] VITALS: BP 152/62
[2020-08-21 20:00] VITALS: BP 150/68
[2020-08-22] VITALS (7 sets, daily range): BP systolic 95–190; BP diastolic 39–71
[2020-08-22 06:19] LABS: HEMATOCRIT 27.9 % (37.0-47.0); HEMOGLOBIN 9.2 gm/dL (12.0-15.0); MCH 32.2 pg (26.0-34.0); MCHC 33.2 g/dL (28.0-37.0); MCV 97.1 fL (80.0-100.0); MPV 8.3 fl. (7.2-11.1); RBC 2.87 mil/uL (4.20-5.00); RDW-CV 16.8 % (10.5-14.5); WBC 8.8 thou/uL (4.0-11.0)
[2020-08-22 06:26] LABS: CALCIUM 8.3 mg/dL (8.5-10.1); CREATININE 1.4 mg/dL (0.6-1.3); POTASSIUM 4.1 mmol/L (3.5-5.1)
[2020-08-23 04:16] VITALS: BP 108/43
[2020-08-23 04:41] LABS: HEMATOCRIT 28.2 % (37.0-47.0); HEMOGLOBIN 9.5 gm/dL (12.0-15.0); MCH 32.3 pg (26.0-34.0); MCHC 33.6 g/dL (28.0-37.0); MCV 96.1 fL (80.0-100.0); MPV 8.6 fl. (7.2-11.1); RBC 2.93 mil/uL (4.20-5.00); RDW-CV 16.2 % (10.5-14.5); WBC 11.1 thou/uL (4.0-11.0)
[2020-08-23 05:15] LABS: CALCIUM 8.6 mg/dL (8.5-10.1); CREATININE 1.2 mg/dL (0.6-1.3); POTASSIUM 3.6 mmol/L (3.5-5.1)
[2020-08-23 08:00] VITALS: BP 118/53
[2020-08-23 12:04] VITALS: BP 126/51
[2020-08-23 16:22] VITALS: BP 130/77
[2020-08-23 20:15] VITALS: BP 143/82
[2020-08-24 00:34] VITALS: BP 94/48
[2020-08-24 04:12] VITALS: BP 149/51
[2020-08-24 12:00] VITALS: BP 141/52
== END 2020-08-24 16:55 | DRG 871 ==
LOC: M.ERS 10:32 → M.TBA-ER 12:33 → M.2W 12:33
PROVIDERS: Family Medicine; ADMIT Internal Medicine; ATTEND Internal Medicine
DX: A41.9 Sepsis, unspecified organism (principal); N17.0 Acute kidney failure with tubular necrosis; J96.01 Acute respiratory failure with hypoxia; N39.0 Urinary tract infection, site not specified; K21.9 Gastro-esophageal reflux disease without esophagitis; E78.00 Pure hypercholesterolemia, unspecified; M81.0 Age-related osteoporosis without current pathological fracture; E86.0 Dehydration; B96.89 Other specified bacterial agents as the cause of diseases classified elsewhere; Z20.822 Contact with and (suspected) exposure to COVID-19; F32.9 Major depressive disorder, single episode, unspecified; E78.5 Hyperlipidemia, unspecified; Z98.42 Cataract extraction status, left eye; Z98.41 Cataract extraction status, right eye; Z90.49 Acquired absence of other specified parts of digestive tract; Z88.1 Allergy status to other antibiotic agents; Z88.0 Allergy status to penicillin; Z88.8 Allergy status to other drugs, medicaments and biological substances; Z79.899 Other long term (current) drug therapy; I51.7 Cardiomegaly; M72.2 Plantar fascial fibromatosis